=== PATIENT | female | born 1995 | race Hispanic/Latino ===

== ENCOUNTER 2022-01-30 07:16 | Day surgery (SDC) | payer MEDICAID ==
[2022-01-25 12:39] LABS: BASOPHILS % (AUTO) 0.6 % (0.0-5.0); EOSINOPHILS % (AUTO) 1.9 % (0.0-8.0); HEMATOCRIT 31.5 % (36-48); LYMPHOCYTES % (AUTO) 28.8 % (21.0-51.0); MEAN CORPUSCULAR HEMOGLOBIN 18.1 pg (27.0-33.0); MEAN CORPUSCULAR HGB CONC 28.3 g/dL (32.0-36.0); MEAN CORPUSCULAR VOLUME 63.9 fL (79-99); MONOCYTES % (AUTO) 9.4 % (3.0-13.0); NEUTROPHILS % (AUTO) 58.9 % (40.0-77.0); PLATELET COUNT (AUTO) 191 K/uL (130-400); RED BLOOD CELL COUNT(AUTO) 4.93 MIL/uL (4.00-5.50); RED CELL DISTRIBUTION WIDTH 20.4 % (11.0-15.5); WHITE BLOOD COUNT (AUTO) 6.9 K/uL (4.8-10.8)
[2022-01-25 12:50] LABS: APPEARANCE,URINE CLEAR (CLEAR); BILIRUBIN,URINE NEGATIVE (NEGATIVE); COLOR,URINE LIGHT-YELLOW (YELLOW); GLUCOSE, URINE (UA) NEGATIVE (NEGATIVE); KETONES,URINE NEGATIVE (NEGATIVE); LEUKOCYTE ESTERASE ,URINE 25 Leu/uL (NEGATIVE); NITRATE,URINE NEGATIVE (NEGATIVE); OCCULT BLOOD,URINE NEGATIVE (NEGATIVE); PROTEIN,URINE NEGATIVE (NEGATIVE); UROBILINOGEN,URINE 0.2 mg/dL (0.2-1.0)
[2022-01-25 12:50] LABS: INR 0.93 (0.85-1.15); PROTHROMBIN TIME 10.1 SEC (9.6-11.6)
[2022-01-25 12:52] LABS: PARTIAL THROMBOPLASTIN TIME 27.5 SEC (26.3-35.5)
[2022-01-25 12:58] LABS: MUCUS,URINE RARE LPF (None Seen); SQUAMOUS EPITHELIAL CELL,UR FEW /HPF (0-2)
[2022-01-26 14:37] VITALS: BP 152/88
[~2022-01-30] VITALS: Ht 152.4 cm; Wt 90.7 kg
[2022-01-30] VITALS (18 sets, daily range): BP systolic 120–149; BP diastolic 58–80
[~2022-01-30 07:16] MED LIST: 0.9%NACL 1000ML 1,000 ML IV SCH; CEFAZOLIN SODIUM 1 GM VIAL IVP SCH
[2022-01-30] MEDS ORDERED: LACTATED RINGERS 1000ML 1,000 ML IV ONE (07:45)
[2022-01-30] MEDS ORDERED: BUPIVACAINE/PF 0.25% 30ML VIAL IJ ONE (09:04)
[2022-01-30] MEDS ORDERED: CEFAZOLIN SODIUM 2 GM VIAL IVP ONE (10:41)
[2022-01-30] MEDS ORDERED: PROPOFOL 10 MG/ML 20ML VIAL IV ONE (10:42)
[2022-01-30] MEDS ORDERED: MIDAZOLAM HCL 1 MG/ML 2ML VIAL ONE (10:42)
[2022-01-30] MEDS ORDERED: KETOROLAC 30MG VIAL (30MG/ML) ONE ×2 (10:43→12:19)
[2022-01-30] MEDS ORDERED: FENTANYL CITRATE PF 50 MCG/1 ML 2ML VIAL ONE (10:45)
[2022-01-30] MEDS ORDERED: ONDANSETRON 4MG INJ ONE ×2 (11:15→12:18)
[2022-01-30] MEDS ORDERED: MEPERIDINE-PF 25 MG/ML SYG ONE (12:19)
== END 2022-01-30 13:50 | disposition home or self-care (01) ==
LOC: DAH 07:16
PROVIDERS: ATTEND Student in an Organized Health Care Education/Training Program
DX: N80.122 Deep endometriosis of left ovary (principal); Z20.822 Contact with and (suspected) exposure to COVID-19; I10 Essential (primary) hypertension; D64.9 Anemia, unspecified; Z79.01 Long term (current) use of anticoagulants; Z98.890 Other specified postprocedural states; Z98.891 History of uterine scar from previous surgery; Z83.3 Family history of diabetes mellitus; Z80.0 Family history of malignant neoplasm of digestive organs; Z80.9 Family history of malignant neoplasm, unspecified; Z87.891 Personal history of nicotine dependence
CPT/HCPCS: 85025; 85610; 85730; 81001; 36415 ×2; 10121; 84703; 87426; 88305; 88342; 88341; A4663; A4452; J7120; J3010; J0690 ×2; S0020; J2250; J3490; J2405 ×2; J1885 ×2; J2175; G0168; A4930; A4215; A4223; A4222; A4221; A4600; J2704

== ENCOUNTER 2023-03-19 09:35 | Day surgery (SDC) | payer MEDICAID ==
[2023-03-13 11:19] LABS: APPEARANCE,URINE CLEAR (CLEAR); BILIRUBIN,URINE NEGATIVE (NEGATIVE); COLOR,URINE LIGHT-YELLOW (YELLOW); GLUCOSE, URINE (UA) NEGATIVE (NEGATIVE); KETONES,URINE NEGATIVE (NEGATIVE); LEUKOCYTE ESTERASE ,URINE 250 Leu/uL (NEGATIVE); NITRATE,URINE NEGATIVE (NEGATIVE); OCCULT BLOOD,URINE SMALL (NEGATIVE); PH,URINE 5.5 (5.0-8.0); PROTEIN,URINE NEGATIVE (NEGATIVE); UROBILINOGEN,URINE 0.2 mg/dL (0.2-1.0)
[2023-03-13 11:21] LABS: ADD UA MICROSCOPIC YES
[2023-03-13 11:24] LABS: BACTERIA,URINE RARE /HPF (None Seen); MUCUS,URINE RARE LPF (None Seen); SQUAMOUS EPITHELIAL CELL,UR FEW /HPF (0-2)
[2023-03-13 11:25] LABS: HCG,QUALITATIVE URINE NEGATIVE (NEGATIVE)
[2023-03-13 11:44] VITALS: BP 148/89; PULSE 69; RESP 18
[2023-03-13 11:50] LABS: BASOPHILS % (AUTO) 0.8 % (0.0-5.0); EOSINOPHILS # (AUTO) 0.34 K/uL (0.00-0.70); EOSINOPHILS % (AUTO) 2.8 % (0.0-8.0); HEMATOCRIT 31.7 % (36-48); IMMATURE GRANULOCYTE ABSOLUTE 0.11 K/uL (0-1); LYMPHOCYTES # (AUTO) 1.6 K/uL (1.0-4.8); LYMPHOCYTES % (AUTO) 12.7 % (21.0-51.0); MEAN CORPUSCULAR HGB CONC 26.5 g/dL (32.0-36.0); MEAN CORPUSCULAR VOLUME 64.2 fL (79-99); MONOCYTES # (AUTO) 0.8 K/uL (0.1-1.0); MONOCYTES % (AUTO) 6.7 % (3.0-13.0); NEUTROPHILS # (AUTO) 9.4 K/uL (1.8-7.7); NEUTROPHILS % (AUTO) 76.1 % (40.0-77.0); PLATELET COUNT (AUTO) 327 K/uL (130-400); RED BLOOD CELL COUNT(AUTO) 4.94 MIL/uL (4.00-5.50); RED CELL DISTRIBUTION WIDTH 19.6 % (11.0-15.5); WHITE BLOOD COUNT (AUTO) 12.4 K/uL (4.8-10.8)
[2023-03-19] VITALS (17 sets, daily range): BP systolic 117–131; BP diastolic 51–77; PULSE 64–96; RESP 14–20
[~2023-03-19] VITALS: Ht 152.4 cm; Wt 97.6 kg
[~2023-03-19 09:35] MED LIST changes: -0.9%NACL 1000ML 1,000 ML IV SCH; -CEFAZOLIN SODIUM 1 GM VIAL IVP SCH; +TRAM50TA4 PO
[2023-03-19] MEDS ORDERED: LACTATED RINGERS 1000ML 1,000 ML IV ONE (10:06)
[2023-03-19] MEDS ORDERED: CEFAZOLIN SODIUM 2 GM VIAL ONE (10:06)
[2023-03-19] MEDS ORDERED: FAMOTIDINE 20MG VIAL IV ONE (12:20)
[2023-03-19] MEDS ORDERED: MIDAZOLAM HCL 1 MG/ML 2ML VIAL ONE (12:23)
[2023-03-19] MEDS ORDERED: LIDOCAINE PF 100MG/5ML (2%) SYRINGE 5ML ONE (12:28)
[2023-03-19] MEDS ORDERED: FENTANYL CITRATE PF 50 MCG/1 ML 2ML VIAL ONE ×3 (12:29→14:08)
[2023-03-19] MEDS ORDERED: PROPOFOL 10 MG/ML 20ML VIAL IV ONE (12:29)
[2023-03-19] MEDS ORDERED: ONDANSETRON 4MG INJ ONE ×2 (12:46→13:56)
[2023-03-19] MEDS ORDERED: LIDOCAINE 1%-EPI 1:100,000 20 ML VIAL IJ ONE (12:51)
[2023-03-19] MEDS ORDERED: EPHEDRINE SULFATE 50 MG/ML AMPULE ONE (12:58)
[2023-03-19] MEDS ORDERED: MEPERIDINE-PF 25 MG/ML SYG ONE ×2 (13:41→13:57)
[2023-03-19] MEDS ORDERED: KETOROLAC 30MG VIAL (30MG/ML) ONE (14:38)
== END 2023-03-19 15:35 | disposition home or self-care (01) ==
LOC: DAH 09:35
PROVIDERS: ATTEND Student in an Organized Health Care Education/Training Program
DX: D48.5 Neoplasm of uncertain behavior of skin (principal); R22.2 Localized swelling, mass and lump, trunk; N80.9 Endometriosis, unspecified; I10 Essential (primary) hypertension; Z79.899 Other long term (current) drug therapy; Z79.01 Long term (current) use of anticoagulants; Z98.891 History of uterine scar from previous surgery; Z98.890 Other specified postprocedural states; Z83.3 Family history of diabetes mellitus; Z80.8 Family history of malignant neoplasm of other organs or systems; Z87.891 Personal history of nicotine dependence
CPT/HCPCS: 85025; 87077; 87088; 87186; 81001; 81025 ×2; 36415; 11406; 88305; A6260; A4663; J7120 ×2; A4452; J3010 ×3; J3490 ×4; J2250; J2405 ×2; J1885; J2175 ×2; J0690; A4930 ×2; A4215; A4223; A4222; A4221; A4600; S0028; J2001; J2704; G0168

== ENCOUNTER 2024-05-17 18:56 | Emergency (ER) | payer MEDICAID ==
[~2024-05-17] VITALS: Ht 152.4 cm; Wt 95.3 kg
--- NOTE | 2024-05-17 18:58 | NUR ---
UA CUP PROVIDED
--- NOTE | 2024-05-17 19:20 | NUR ---
PT CARE ASSUMED AT THIS TIME
[2024-05-17 19:31] LABS: APPEARANCE,URINE CLEAR (CLEAR); BILIRUBIN,URINE NEGATIVE (NEGATIVE); COLOR,URINE YELLOW (YELLOW); GLUCOSE, URINE (UA) NEGATIVE (NEGATIVE); KETONES,URINE NEGATIVE (NEGATIVE); LEUKOCYTE ESTERASE ,URINE NEGATIVE Leu/uL (NEGATIVE); NITRATE,URINE NEGATIVE (NEGATIVE); OCCULT BLOOD,URINE NEGATIVE (NEGATIVE); PH,URINE 6.5 (5.0-8.0); PROTEIN,URINE 10 mg/dL (NEGATIVE); UROBILINOGEN,URINE 0.2 mg/dL (0.2-1.0)
[2024-05-17 19:33] LABS: ADD UA MICROSCOPIC YES
[2024-05-17 19:35] LABS: BACTERIA,URINE RARE /HPF (None Seen); MUCUS,URINE RARE LPF (None Seen); SQUAMOUS EPITHELIAL CELL,UR FEW /HPF (0-2); WBC,URINE 0-1 /HPF (0-1)
[2024-05-17 19:41] LABS: BASOPHILS # (AUTO) 0.05 K/uL (0.00-0.20); BASOPHILS % (AUTO) 0.6 % (0.0-5.0); EOSINOPHILS % (AUTO) 1.2 % (0.0-8.0); HEMATOCRIT 33.4 % (36-48); IMMATURE GRANULOCYTE ABSOLUTE 0.03 K/uL (0-1); LYMPHOCYTES # (AUTO) 1.5 K/uL (1.0-4.8); LYMPHOCYTES % (AUTO) 17.8 % (21.0-51.0); MEAN CORPUSCULAR HEMOGLOBIN 16.9 pg (27.0-33.0); MEAN CORPUSCULAR HGB CONC 27.2 g/dL (32.0-36.0); MEAN CORPUSCULAR VOLUME 62.2 fL (79-99); MONOCYTES # (AUTO) 0.5 K/uL (0.1-1.0); MONOCYTES % (AUTO) 6.4 % (3.0-13.0); NEUTROPHILS # (AUTO) 6.2 K/uL (1.8-7.7); NEUTROPHILS % (AUTO) 73.6 % (40.0-77.0); PLATELET COUNT (AUTO) 283 K/uL (130-400); RED BLOOD CELL COUNT(AUTO) 5.37 MIL/uL (4.00-5.50); RED CELL DISTRIBUTION WIDTH 21.9 % (11.0-15.5); WHITE BLOOD COUNT (AUTO) 8.4 K/uL (4.8-10.8)
[2024-05-17 19:48] LABS: CREATININE 0.6 mg/dL (0.5-1.0); POTASSIUM 3.4 mmol/L (3.5-5.1)
--- NOTE | 2024-05-17 20:20 | NUR ---
2 LARGE CUPS OF WATER GIVEN, PATIENT INSTRUCTED TO DRINK MUCH SHE CAN AND DO NOT USE THE RESTROOM UNTIL AFTER U/S IS OBTAINED.
--- NOTE | 2024-05-17 20:59 | NUR ---
ULTRA SOUND TECH AT BEDSIDE AT THIS TIME. PT DOES NOT HAVE FULL BLADDER AT THIS TIME. CARBON GRINDER WILL BE BACK WITHIN AN HOUR. PT ADVISED AT THIS TIME TO CONTIUE DRINKING AND NOTIFY ED RN WHEN THE NEED TO PEE BEGINS.
--- NOTE | 2024-05-17 21:32 | NUR ---
ULTRASOUND PAGED AT THIS TIME AND NOTIFIED THAT PT REPORTED FULL BLADDER AT THIS TIME.
--- NOTE | 2024-05-17 22:17 | ERN ---
General Chief Complaint: OB<20 weeks gest. Stated Complaint: VAGINAL BLEEDING Time Seen by MD: 19:03 Time Seen by Midlevel: 19:03 Source: patient History of Present Illness Initial Comments Patient is a 20-year-old female presenting to the emergency department with suprapubic abdominal cramping that is rated four on a 0-10 scale. She reports light vaginal bleeding with what appears to be blood clots. Per last menstrual. The patient reports being approximately 5-6 weeks . She reports being a A0. She was not seen an OBGYN or primary care doctor for this . She reports taking her vitamins denies taking any other medications on a daily basis. Allergies: Coded Allergies: No Known Drug Allergies (Unverified Allergy, Unknown, 01/26/22) Home Meds Reported Medications Tramadol Hcl (Tramadol HCl) 50 Mg Tablet, 1 TAB PO DAILY PRN for PAIN 03/13/23 Past Medical History Past Medical History: No Pertinent History Past Surgical History: Female( History) LMP: Apr 05, 2024 : 2 Para: 1 ROS Dictation CONSTITUTIONAL: Negative except for HPI HEAD/FACE: Negative except for HPI EENT: Negative except for HPI RESPIRATORY: Negative except for HPI GASTROINTESTINAL/ABDOMINAL: Negative except for HPI GENITOURINARY: Negative except for HPI MUSCULOSKELETAL: Negative except for HPI INTEGUMENTARY: Negative except for HPI NEUROLOGICAL/PSYCH: Negative except for HPI HEMATOLOGIC/LYMPHATIC: Negative except for HPI All Systems Negative, Except as noted above. 13 point review of systems assessed and all negative except for above. Physical Exam Physical Exam Dictation Vital Signs reviewed General Appearance: Alert, oriented x 3, no acute distress, well developed, nourished. Head and Face: non-traumatic. Eyes: PERRL, pink conjunctivas, eyelid no trauma, anterior chamber with arcus senilis. Ears: Pinnas intact and no signs of trauma or erythema ear canals clear and no discharge TM no erythema Nose: No discharge, no bleeding. Oropharynx: Mouth normal, tongue pink, pharynx clear,no erythema, tonsils no exudates, no abscesses noted, mucous membrane moist Neck: Supple, non-tender, no thyromegaly, no masses, no JVD, no bruits Breast:Deferred Chest:No tenderness, no crepitus, no paradoxical movement, no retractions Lungs:Clear, well-ventilated, symmetric, no rales, no wheezing, no rhonchi, no stridor, good breath sounds bilaterally Heart: Regular rate, regular rhythm, no murmur, no gallops Vascular: no peripheral edema, Abdomen: Soft, positive bowel sounds, nondistended, no guarding, nontender, no rebound, no masses no hepatomegaly, no splenomegaly, no Reyes's sign, no hernias. Rectal: Deferred Genital: Deferred Neurological: Normal speech, motor function intact, sensory function intact Musculoskeletal: Neck nontender, full range of motion, back nontender, full range of motion, Extremities: nontender, full range of motion Skin: Color pink, dry, no turgor, no rash, no lacerations, no abrasions, no contusions. Lymphatic: Deferred Results Laboratory and Microbiology Lab and Micro Result Laboratory Tests Test 05/17/24 19:25 05/17/24 19:34 Urine Color YELLOW (YELLOW) Urine Appearance CLEAR (CLEAR) Urine pH 6.5 (5.0-8.0) Urine Specific [place] 1.027 (1.001-1.031) Urine Protein 10 mg/dL (NEGATIVE) H Urine Glucose (UA) NEGATIVE mg/dL (NEGATIVE) Urine Ketones NEGATIVE mg/dL (NEGATIVE) Urine Occult Blood NEGATIVE (NEGATIVE) Urine Nitrate NEGATIVE (NEGATIVE) Urine Bilirubin NEGATIVE mg/dL (NEGATIVE) Urine Urobilinogen 0.2 mg/dL (0.2-1.0) Urine Leukocyte Esterase NEGATIVE Swathi/uL Urine RBC 11-25 /HPF (0-1) H Urine WBC 0-1 /HPF (0-1) Urine Squamous Epithelial Cells FEW /HPF (0-2) Urine Bacteria RARE /HPF (None Seen) White Blood Count 8.4 K/uL (4.8-10.8) Red Blood Count 5.37 MIL/uL (4.00-5.50) Hemoglobin 9.1 g/dL (12.0-16.0) L Hematocrit 33.4 % (36-48) L Mean Corpuscular Volume 62.2 fL (79-99) L Mean Corpuscular Hemoglobin 16.9 pg (27.0-33.0) L Mean Corpuscular Hemoglobin Concent 27.2 g/dL (32.0-36.0) L Red Cell Distribution Width 21.9 % (11.0-15.5) H Platelet Count 283 K/uL (130-400) Mean Platelet Volume fL (7.5-10.5) Immature Granulocyte % (Auto) 0.4 % (0-1) Neutrophils (%) (Auto) 73.6 % (40.0-77.0) Lymphocytes (%) (Auto) 17.8 % (21.0-51.0) L Monocytes (%) (Auto) 6.4 % (3.0-13.0) Eosinophils (%) (Auto) 1.2 % (0.0-8.0) Basophils (%) (Auto) 0.6 % (0.0-5.0) Neutrophils # (Auto) 6.2 K/uL (1.8-7.7) Lymphocytes # (Auto) 1.5 K/uL (1.0-4.8) Monocytes # (Auto) 0.5 K/uL (0.1-1.0) Eosinophils # (Auto) 0.10 K/uL (0.00-0.70) Basophils # (Auto) 0.05 K/uL (0.00-0.20) Absolute Immature Granulocyte (auto 0.03 K/uL (0-1) Nucleated Red Blood Cells 0.0 % (0.0-0.19) Red Blood Cell Morphology See comments Sodium Level 139 mmol/L (136-145) Potassium Level 3.4 mmol/L (3.5-5.1) L Chloride Level 102 mmol/L (101-111) Carbon Dioxide Level 28 mmol/L (21-32) Blood Urea Nitrogen 10 mg/dL (7-18) Creatinine 0.6 mg/dL (0.5-1.0) Glomerular Filtration Rate Calc 125 mL/min (>90) Random Glucose 92 mg/dL (70-105) Total Calcium 8.9 mg/dL (8.5-10.1) Human Chorionic Gonadotropin, Quant 7680 mIU/mL (0-5) H Labs Reviewed?: Yes MDM MDM: Patient is a 28-year-old female presenting to the emergency department with suprapubic abdominal cramping that is rated four on a 0-10 scale. She reports l ight vaginal bleeding with what appears to be blood clots. Per last menstrual. The patient reports being approximately 5-6 weeks . She reports being a A0. She was not seen an OBGYN or primary care doctor for this . She reports taking her vitamins denies taking any other medications on a daily basis. On physical examination the patient is in no acute distress. Initial vital signs are stable. CBC shows a normal white blood cell count of 8.4. Hemoglobin is 9.1 however the patient has a history of chronic anemia with her last hemoglobin back in March of 2023 being 8.4. Hemoglobin obtained today is stable. Her chemistries are unremarkable. Her hCG quant is 7680. Urinalysis does not show any evidence of infection. Pelvic ultrasound reveals an intrauterine gestation measuring approximately five weeks and one days. No subchorionic bleed was noted. While in the emergency department the patient has had no episodes of vaginal bleeding. The patient will be discharged home and was advised to follow up with OBGYN outpatient. Return precautions discussed Differential diagnosis: Threatened , miscarriage, urinary tract infection There are no social concerns with this patient. Prescription drug management Prescriptions will include: None Medical management and examination interpretation discussions were had by me with other qualified healthcare professionals as indicated for the patient's care. ED Course Orders Procedure Category Date Status Time Cbc With Differential LAB 05/17/24 Complete 18:57 Basic Metabolic Panel LAB 05/17/24 Complete 18:57 Urinalysis Profile LAB 05/17/24 Complete 18:57 Hcg,Quantitative LAB 05/17/24 Complete 18:57 Us Ob <14 Weeks US 05/17/24 Taken 20:15 Vital Signs Date Time Temp Pulse Resp B/P (MAP) Pulse Ox O2 Delivery O2 Flow Rate FiO2 05/17/24 22:27 98.1 71 18 131/70 96 Room Air* 0 21 05/17/24 20:17 98.2 78 20 134/77 96 Room Air* 0 21 05/17/24 19:40 98.1 72 18 131/71 96 Room Air* 0 21 05/17/24 18:57 98.2 97 20 146/87 100 Room Air DX & DISP Disposition: Discharge Departure Impression: Primary Impression: First trimester Condition: Stable Additional Instructions: Your blood work today is stable. Your hCG quant is 7680. Your urinalysis does not show any evidence of infection. Your pelvic ultrasound reveals an intrauterine gestational sac measuring approximately five weeks and one day. Please follow up with your OBGYN for further evaluation. Return to the ER for any new or worsening symptoms Referrals: NONE (PCP) SEAN SALAZAR MD Time of Disposition: 22:17 I have reviewed the case, and I agree with, Diagnosis and Plan I performed the substantive portion of the visit. I have reviewed and personally made and approve the management plan that is documented in the note by myself or the YOVANNY. I acknowledge for responsibility for the patient's management plan. KELY GUTIERREZ May 17, 2024 22:17
[2024-05-17 22:27] VITALS: BP 131/70; PULSE 71; RESP 18; TEMP 98; O2SAT 96
--- NOTE | 2024-05-18 08:55 | HMCIMG ---
ULTRASOUND OF THE PELVIS INDICATION: Vaginal bleeding COMPARISONS: None TECHNIQUE: Transabdominal real-time sonographic images were acquired earlier, and subsequently made available for review. FINDINGS: Examination is limited by extensive overlying bowel gas as well as patient body habitus and patient's inability to hold full bladder as per the web page developer notes. The uterus measures 11.9 x 6.0 x 6.6 cm. The uterus is normal in echotexture and contour. Single intrauterine gestation measuring 0.4 cm corresponds adjustment sonographic gestational age of 5 weeks 1 days. Yolk sac and pole were not well-demonstrated. Ovaries were not well-demonstrated. No free pelvic fluid demonstrated. IMPRESSION: Limitations as reported. Findings suggesting early intrauterine gestation for which continued surveillance of beta-hCG levels and short-term follow-up sonographic imaging is recommended.
== END 2024-05-17 22:28 | disposition home or self-care (01) ==
LOC: EDH 18:56
DX: O26.891 Other specified pregnancy related conditions, first trimester (principal); R10.2 Pelvic and perineal pain; O20.9 Hemorrhage in early pregnancy, unspecified; Z3A.01 Less than 8 weeks gestation of pregnancy
CPT/HCPCS: 36415; 76801; 80048; 81001; 84702; 85025; 99284

== ENCOUNTER 2024-05-20 11:07 | Emergency (ER) | payer MEDICAID ==
[~2024-05-20] VITALS: Ht 160 cm; Wt 72.6 kg
--- NOTE | 2024-05-20 11:38 | ERN ---
General Stated Complaint: 5WKS CURRENTLY BLEEDING Source: patient History of Present Illness Initial Comments Patient is a 29-year-old female 2 para 1 at 5 weeks IUP who presented to the emergency room with a one-week history of vaginal bleeding. Apparently patient was here last week for spotting, she returned today because she states that she is now passing blood clots. States the clots are the size of an orange. Patient states she has changed about 3 times today. There is associated pelvic cramps. Rates the pain as a 7/10, intermittent in frequency. Denies any fever any chills, nausea or vomiting. Allergies: Coded Allergies: No Known Drug Allergies (Unverified Allergy, Unknown, 01/26/22) Home Meds Reported Medications Tramadol Hcl (Tramadol HCl) 50 Mg Tablet, 1 TAB PO DAILY PRN for PAIN 03/13/23 Past Medical History Past Medical History: No Pertinent History Past Surgical History: Female( History) : 2 Para: 1 ROS Dictation Constitutional: No appetite loss, No fevers, chills , No night sweats, No weakness, fatigue Eye: No vision change, No redness, pain or discharge ENT: No hearing loss, ear pain or discharge, No nose bleeds, No sore throat, Neck: No swelling. pain or stiffness Respiratory: No cough, shortness of breath, wheezing Cardiovascular: No chest pain,, palpitations, dyspnea, No edema Gastrointestinal: No abdominal pain, No nausea, vomiting, No diarrhea, constipation Genitourinary: No painful urination, No blood in urine, No urinary incontinence, Vaginal bleeding, pelvic cramps Musculoskeletal: No joint pain, muscle pain, swelling or stiffness Neurological: No numbness, tingling, No weakness, tremors or seizures Psychiatric: : No depression, No anxiety, No sleep disturbance, No Memory changes Lymphatic: No easy bruising, No bleeding tendencies , No swollen lymph nodes A 13-point Review of Systems was assessed, all of which are negative except for HPI or as indicated above. Physical Exam Physical Exam Dictation General: Alert & Oriented, No acute distress. EENT: No conjunctival redness or discharge noted Tympanic membranes are clear, Normal hearing, Oral mucosa is moist, Neck: Non-tender, No jugular vein distention, No lymphadenopathy, No thyromegaly, Supple. Respiratory: Lungs are clear to auscultation, Respirations are non-labored, Breath sounds are equal, No chest wall tenderness, _. Cardiovascular: Normal rate, Normal rhythm, No murmur, Good pulses equal in all extremities, Normal peripheral perfusion, No edema. Gastrointestinal: Soft, Non-tender, Non-distended, Normal bowel sounds, No organomegaly, _. Musculoskeletal: Normal range of motion, Normal strength, No tenderness, No swelling, No deformity, Normal gait. Integumentary: Warm, Dry, [place], Intact, No pallor, No rash. Neurologic: Alert, Oriented x4, Normal sensory, No focal defects Psychiatric: Cooperative, Appropriate mood & affect, Normal judgement, Non- suicidal. Results Laboratory and Microbiology Lab and Micro Result Laboratory Tests Test 05/20/24 12:28 05/20/24 12:33 White Blood Count 7.6 K/uL (4.8-10.8) Red Blood Count 5.07 MIL/uL (4.00-5.50) Hemoglobin 8.5 g/dL (12.0-16.0) L Hematocrit 31.1 % (36-48) L Mean Corpuscular Volume 61.3 fL (79-99) L Mean Corpuscular Hemoglobin 16.8 pg (27.0-33.0) L Mean Corpuscular Hemoglobin Concent 27.3 g/dL (32.0-36.0) L Red Cell Distribution Width 22.5 % (11.0-15.5) H Platelet Count 274 K/uL (130-400) Mean Platelet Volume fL (7.5-10.5) Immature Granulocyte % (Auto) 0.3 % (0-1) Neutrophils (%) (Auto) 74.4 % (40.0-77.0) Lymphocytes (%) (Auto) 16.2 % (21.0-51.0) L Monocytes (%) (Auto) 7.5 % (3.0-13.0) Eosinophils (%) (Auto) 0.9 % (0.0-8.0) Basophils (%) (Auto) 0.7 % (0.0-5.0) Neutrophils # (Auto) 5.7 K/uL (1.8-7.7) Lymphocytes # (Auto) 1.2 K/uL (1.0-4.8) Monocytes # (Auto) 0.6 K/uL (0.1-1.0) Eosinophils # (Auto) 0.07 K/uL (0.00-0.70) Basophils # (Auto) 0.05 K/uL (0.00-0.20) Absolute Immature Granulocyte (auto 0.02 K/uL (0-1) Nucleated Red Blood Cells 0.0 % (0.0-0.19) Human Chorionic Gonadotropin, Quant 93583 mIU/mL (0-5) H MDM Potential differential diagnoses include: * Bleeding in early Assessment: I will order a CBC to rule out any anemia and pelvic ultrasound to rule out any retained products of conception I will re-evaluate the patient after treatment and diagnostic exams have returned to determine whether they require further testing, can be safely discharged home, or need admission for further treatment and evaluation. Patient's [place] was 17557, an increase from results 2 days ago which was 7680. Shows intrauterine sac like structure. Estimated discharge gestational age 5 weeks 5 days. No pole seen at this time Given the social determinants of health affecting care, including literacy, access to medical care, prescription drug management, and [id number] drugs, I will ensure that treatment plans are tailored accordingly. Revaluation : Patient is alert and oriented. States she feels a lot better . We will discharge the patient at this time with instructions to follow up with her OBGYN as soon as possible. Disposition: Will discharge patient at this time with instructions to follow up with PCP for further evaluation and treatment. Attestation: Patient's case was discussed with the ER MD. Reviewed the documentation, medical decision making and treatment plan. Agrees with the findings and plan of care. ED Course Orders Procedure Category Date Status Time Cbc With Differential LAB 05/20/24 Complete 11:22 Hcg,Quantitative LAB 05/20/24 Complete 11:22 Us Ob Transvaginal US 05/20/24 Resulted 11:22 Vital Signs Date Time Temp Pulse Resp B/P (MAP) Pulse Ox O2 Delivery O2 Flow Rate FiO2 05/20/24 14:38 99.0 72 20 143/81 100 Room Air* 0 21 05/20/24 11:32 99.0 72 20 155/83 99 Room Air 0 DX & DISP Disposition: Discharge Departure Impression: Primary Impression: Bleeding in early Condition: Stable Additional Instructions: Discharge Instructions: Explained to the patient that at this time an intrauterine sac like structure was seen however no pole was seen at this time and her is HCG increased from what it was 2 days ago . It is imperative that she follows with up with her Ob so she can be monitored patient verbalized understanding of instructions. *Follow up with your OBGYN in 2 - 3 days after dischargee, for further evaluation and treatment *Continue all medications as prescribed. Do not discontinue or change dosages without consulting your PCP. *Gradually resume normal activities as tolerated. *Continue a balanced diet . Reduce salt intake to help manage BP. *Seek immediate medical attention if you experience chest pain, SOB or severe headache. *Smoking cessation is strongly advised. Resources for quitting smoking are available upon request. Referrals: SELF,REFERRAL (PCP) I performed a substantive portion of the visit. I have reviewed and personally made and approve the management plan that is documented in the notes by myself with YOVANNY/resident. I acknowledged full responsibility for the patient's management plan. KIERAN THOMASON MD May 20, 2024 11:38 PRIYA MONK DO May 21, 2024 09:01
--- NOTE | 2024-05-20 11:55 | HMCIMG ---
US OB TRANSVAGINAL HISTORY: Vaginal bleeding COMPARISON: None TECHNIQUE: Obstetrical ultrasound study was performed. FINDINGS: The uterus measures 8.6 x 6.3 x 6 centimeter. Right ovary measures 3.5 x 3 x 3.4 centimeter. Left ovary is not seen. There is intrauterine saclike structure. In a patient with positive test, differential diagnosis would include early versus ectopic versus missed . Estimated gestational age by sac size is 5 weeks and 5 days. Beta-hCG correlation is recommended. No pole is seen at this time. No fluid is seen in the cul-de-sac. IMPRESSION: 1. There is intrauterine saclike structure. In a patient with positive test, differential diagnosis would include early versus ectopic versus missed . Estimated gestational age by sac size is 5 weeks and 5 days. Beta-hCG correlation is recommended. No pole is seen at this time.
[2024-05-20 13:01] LABS: BASOPHILS # (AUTO) 0.05 K/uL (0.00-0.20); BASOPHILS % (AUTO) 0.7 % (0.0-5.0); EOSINOPHILS # (AUTO) 0.07 K/uL (0.00-0.70); EOSINOPHILS % (AUTO) 0.9 % (0.0-8.0); HEMATOCRIT 31.1 % (36-48); IMMATURE GRANULOCYTE ABSOLUTE 0.02 K/uL (0-1); LYMPHOCYTES # (AUTO) 1.2 K/uL (1.0-4.8); LYMPHOCYTES % (AUTO) 16.2 % (21.0-51.0); MEAN CORPUSCULAR HEMOGLOBIN 16.8 pg (27.0-33.0); MEAN CORPUSCULAR HGB CONC 27.3 g/dL (32.0-36.0); MEAN CORPUSCULAR VOLUME 61.3 fL (79-99); MONOCYTES # (AUTO) 0.6 K/uL (0.1-1.0); MONOCYTES % (AUTO) 7.5 % (3.0-13.0); NEUTROPHILS # (AUTO) 5.7 K/uL (1.8-7.7); NEUTROPHILS % (AUTO) 74.4 % (40.0-77.0); PLATELET COUNT (AUTO) 274 K/uL (130-400); RED BLOOD CELL COUNT(AUTO) 5.07 MIL/uL (4.00-5.50); RED CELL DISTRIBUTION WIDTH 22.5 % (11.0-15.5); WHITE BLOOD COUNT (AUTO) 7.6 K/uL (4.8-10.8)
[2024-05-20 14:38] VITALS: BP 143/81; PULSE 72; RESP 20; TEMP 98.9; O2SAT 100
== END 2024-05-20 14:43 | disposition home or self-care (01) ==
LOC: EDH 11:07
DX: O20.9 Hemorrhage in early pregnancy, unspecified (principal); O26.891 Other specified pregnancy related conditions, first trimester; R10.2 Pelvic and perineal pain; Z3A.01 Less than 8 weeks gestation of pregnancy
CPT/HCPCS: 36415; 76817; 84702; 85025; 99284

== ENCOUNTER 2024-09-08 15:15 | Emergency (ER) | payer MEDICAID ==
--- NOTE | 2024-09-08 15:29 | ERN ---
ED Note History of Present Illness Stated Complaint: MECHANICAL FALL Time Seen by MD: 15:17 Dictation: IS A 29-YEAR-OLD FEMALE WHO STATES SHE IS 21 WEEKS , STATES SHE FELL APPROXIMATE 30 MINUTES PRIOR TO ARRIVAL. G-TUBE P1, SHE IS COMPLAINING OF MILD ABDOMINAL PAIN. SHE DENIES ANY VAGINAL BLEEDING OR CONTRACTIONS. STATES HER DOCTOR IS DR. MCQUEEN OUT OF [facility]. I ADVISED HER THAT I WOULD BE CHECKING STATUS AND WE WILL BE TRANSFER HER TO A HIGHER LEVEL OF CARE WITH THE [facility], SHE ASKED ME IF WE HAD IT HERE AND I SAID NO. I SAID WE WOULD BE TRANSFER HER TO [facility]. SHE STATES SHE DID NOT WANT TO WAIT FOR A TRANSFER AND SAID HER SAID HE WOULD DRIVE HER TO [facility]. I ADVISED HER TO LET ME CHECK STATUS AND HAVE TRANSFERRED BY EMS HOWEVER SHE REFUSED. SHE LEFT THE TRIAGE WITHOUT SIGNING FOR AMA FORM Allergies: Coded Allergies: No Known Drug Allergies (Unverified Allergy, Unknown, 01/26/22) Home Meds Reported Medications Tramadol Hcl (Tramadol HCl) 50 Mg Tablet, 1 TAB PO DAILY PRN for PAIN 03/13/23 Past Medical History Past Medical History: No Pertinent History Surgical History: : 2 Para: 1 RN Note Reviewed/Agreed w/PFSH: Yes Review of System Dictation CONSTITUTIONAL: NEGATIVE EXCEPT FOR HPI HEAD/FACE: NEGATIVE EXCEPT FOR HPI EENT: NEGATIVE EXCEPT FOR HPI RESPIRATORY: NEGATIVE EXCEPT FOR HPI GASTROINTESTINAL/ABDOMINAL: NEGATIVE EXCEPT FOR HPI PELVIC PAIN GENITOURINARY: NEGATIVE EXCEPT FOR HPI MUSCULOSKELETAL: NEGATIVE EXCEPT FOR HPI INTEGUMENTARY: NEGATIVE EXCEPT FOR HPI NEUROLOGICAL/PSYCH: NEGATIVE EXCEPT FOR HPI HEMATOLOGIC/LYMPHATIC: NEGATIVE EXCEPT FOR HPI ALL SYSTEMS NEGATIVE, EXCEPT NOTED ABOVE. 13 POINT REVIEW OF SYSTEMS ASSESSED AND ALL NEGATIVE EXCEPT FOR ABOVE. Physical Exam Dictation VITAL SIGNS REVIEWED GENERAL APPEARANCE: ALERT, ORIENTED X 3, MILD ACUTE DISTRESS, WELL DEVELOPED, NOURISHED. HEAD AND FACE: NON-TRAUMATIC. EYES: PERRL, PINK CONJUNCTIVAS, EYELID NO TRAUMA, ANTERIOR CHAMBER WITH ARCUS SENILIS. EARS: PINNAS INTACT AND NO SIGNS OF TRAUMA OR ERYTHEMA EAR CANALS CLEAR AND NO DISCHARGE TM NO ERYTHEMA NOSE: NO DISCHARGE, NO BLEEDING. OROPHARYNX: MOUTH NORMAL, TONGUE PINK, PHARYNX CLEAR,NO ERYTHEMA, TONSILS NO EXUDATES, NO ABSCESSES NOTED, MUCOUS ME MBRANE MOIST NECK: SUPPLE, NON-TENDER, NO THYROMEGALY, NO MASSES, NO JVD, NO BRUITS BREAST:DEFERRED CHEST:NO TENDERNESS, NO CREPITUS, NO PARADOXICAL MOVEMENT, NO RETRACTIONS LUNGS:CLEAR, WELL-VENTILATED, SYMMETRIC, NO RALES, NO WHEEZING, NO RHONCHI, NO STRIDOR, GOOD BREATH SOUNDS BILATERALLY HEART: REGULAR RATE, REGULAR RHYTHM, NO MURMUR, NO GALLOPS VASCULAR: NO PERIPHERAL EDEMA, ABDOMEN: SOFT, POSITIVE BOWEL SOUNDS, NONDISTENDED, NO GUARDING, NONTENDER, NO REBOUND, NO MASSES NO HEPATOMEGALY, NO SPLENOMEGALY, NO RANGEL'S SIGN, NO HERNIAS. RECTAL: DEFERRED GENITAL: DEFERRED PATIENT LEFT TRIAGE AGAINST MEDICAL ADVICE BEFORE HEART TONES WAS ESTABLISHED. LEFT LOWER POV NEUROLOGICAL: NORMAL SPEECH, MOTOR FUNCTION INTACT, SENSORY FUNCTION INTACT MUSCULOSKELETAL: NECK NONTENDER, FULL RANGE OF MOTION, BACK NONTENDER, FULL RANGE OF MOTION, EXTREMITIES: NONTENDER, FULL RANGE OF MOTION SKIN: COLOR PINK, DRY, NO TURGOR, NO RASH, NO LACERATIONS, NO ABRASIONS, NO CONTUSIONS. LYMPHATIC: DEFERRED Results (Laboratory/Radiology) Labs Reviewed?: Yes Medical Decision Making MDM MEDICAL DECISION-MAKING BASED ON CHECKING HEART TONES AND HAVING PATIENT TRANSFERRED TO A HIGHER LEVEL OF CARE DUE TO HIGH-RISK FOR [facility]. PATIENT REFUSED TRANSFER AND LEFT THE TRIAGE ROOM AGAINST MEDICAL ADVICE STATES IT HER WE WILL TAKE HER DIRECTLY TO [facility]. DX & DISP Disposition: AMA Departure Impression: Primary Impression: Fall Additional Impression: Abdominal pain during in second trimester Condition: Stable Referrals: SELF,REFERRAL (PCP) Time of Disposition: 15:28 I have reviewed the case, and I agree with, Diagnosis and Plan YOVANY CONRAD NP Sep 08, 2024 15:29
== END 2024-09-08 15:29 | disposition left against medical advice (07) ==
LOC: EDH 15:15
DX: O26.892 Other specified pregnancy related conditions, second trimester (principal); R10.9 Unspecified abdominal pain; W18.39XA Other fall on same level, initial encounter; Y93.89 Activity, other specified; Y92.89 Other specified places as the place of occurrence of the external cause; Y99.8 Other external cause status
CPT/HCPCS: 99281

== ENCOUNTER 2024-12-04 01:28 | Emergency (ER) | payer MEDICAID ==
[~2024-12-04] VITALS: Ht 152.4 cm; Wt 105.7 kg
--- NOTE | 2024-12-04 01:54 | ERN ---
ED Note History of Present Illness Stated Complaint: C/O COUGH WITH SORE THROAT X 2 DAYS Chief Complaint: Sore Throat Time Seen by MD: 01:32 Dictation: This is a 29-year-old female who is 4 weeks came in with sore throat and mild cough for the past 2 days. She denied any fever chills or rigors. Many of the family members are also sick with a URI symptoms. No travel no new pets at home. No sputum or hemoptysis. She does report some itching in her ears but no earache Temperature 98 pulse 68 respirations 20 blood pressure 146/91 with a pulse oximetry of 98% on room air Allergies: Coded Allergies: No Known Drug Allergies (Unverified Allergy, Unknown, 01/26/22) Home Meds Active Scripts Amoxicillin (Amoxicillin) 500 Mg Tablet, 1 TAB PO TID for 7 Days, #21 TAB 0 Refills Prov:IMTIAZ GROVE MD 12/04/24 Reported Medications Tramadol Hcl (Tramadol HCl) 50 Mg Tablet, 1 TAB PO DAILY PRN for PAIN 03/13/23 Past Medical History Past Medical History: Hypertension Surgical History: Family History: Negative Social History: Negative : 2 Para: 1 RN Note Reviewed/Agreed w/PFSH: Yes Review of System Dictation Constitutional: Negative for fever,chills, and weight loss Eyes: Negative for injury, pain,redness, and discharge ENT: Negative for injury,pain or swelling positive for sore throat Cardiovascular: Negative for chest pain, palpitations, and edema Respiratory: Negative for shortness of breath, cough, and wheezing, Abdomen/GI: Negative for abdominal pain, nausea, vomiting, diarrhea, and constipation Back: Negative for injury and pain : Negative for injury, bleeding and discharge MS/Extremity: Negative for injury and deformity Skin: Negative for rash, and discoloration Neuro: Negative for headache, weakness, numbness, tingling, and seizure Psych: Negative for suicide ideation, homicidal ideation, and hallucinations Initial Vital Sign VS Vital Signs Date Time Temp Pulse Resp B/P (MAP) Pulse Ox O2 Delivery O2 Flow Rate FiO2 12/04/24 01:29 98.1 69 20 146/91 98 Room Air 12/04/24 01:46 0 21 Physical Exam Dictation General: awake, alert, NAD extremely obese Head/Face: Normocephalic, atraumatic Eyes: PERRL, EOMI, vision at baseline ENT: oral cavity clear, TMs clear, no signs of infection mild erythema of the posterior pharyngeal wall no exudate no pus Neck: Trachea midline, supple, no nuchal rigidity Cardiovascular: RRR, normal S1/S2, No MRGs, no JVD Respiratory: CTAB, no respiratory distress, No rales or wheezes Abdomen: Soft, non-tender, non-distended, normal bowel sounds, no guarding or rebound. Skin: Warm, dry, normal turgor, no rash MS/Extremity: Pulses equal, no cyanosis, neurovascular intact, FROM Neuro: COAx4, GCS 15, strength 5/5, CN 2-12 intact, normal cerebellar exam, no rmal gait, Psych: Normal behavior, mood, and affect normal Extremities-trace edema without any palpable cords, Homans sign is negative Results (Laboratory/Radiology) Laboratory/Radiology Laboratory Tests Test 12/04/24 01:37 Influenza Type A Antigen Negative For Type A Influenza Type B Antigen Negative For Type B SARS-CoV-2 Antigen (Rapid) PRESUMPTIVE NEGATIVE Group A Streptococcus Rapid negative (NEGATIVE) Labs Reviewed?: Yes ED Course ED Course Orders Procedure Category Date Status Time Influenza Type A & B, LAB 12/04/24 Complete Rapid 01:33 Rapid (Group A Strep) LAB 12/04/24 Complete 01:33 Covid19 (Sars Antigen LAB 12/04/24 Complete Rapid) 01:33 ,Urine Test LAB 12/04/24 Logged 02:09 Vital Signs Date Time Temp Pulse Resp B/P (MAP) Pulse Ox O2 Delivery O2 Flow Rate FiO2 12/04/24 01:46 98.1 68 18 125/66 99 Room Air* 0 21 12/04/24 01:29 98.1 69 20 146/91 98 Room Air We will perform diagnostic labs, and administer medications according to the patient's complaint. Once the results are available, will review and personally interpreted the labs to rule out any acute life-threatening emergency the trach require immediate intervention and treatment. I will then re-evaluate the patient after treatment and diagnostic exams have return to determine whether the patient requires any further testing, can safely be discharged home or need further admission to hospital for additional treatment and evaluation. 2:31 a.m. swabs for COVID influenza strep are all negative. I updated the patient on all the negative results and informed her maybe just a viral URI however because of the redness and associated cough would be reasonable to take amoxicillin safely as a nursing mother for 5-7 days. She verbalized full understanding Medical Decision Making MDM Differential diagnosis: Influenza, streptococcal pharyngitis, COVID, viral URI, bacterial pharyngitis Rationale: Tests considered and ordered secondary to shared decision making include: Previous outside records reviewed: Old ER visits. Risk of complication and/or morbidity or mortality of patient management: None Medications-Per medication reconciliation Need for hospitalization: Patient does not meet criteria for hospitalization. Need for emergency major/minor surgery: No There are no social concerns with this patient. Prescription drug management Prescriptions will include symptomatic care Patient's prior external medical records from other ER visits were reviewed by me as indicated. Prior testing and results from previous visits were reviewed. Prior tests were taken into account with medical decision making and resource u tilization, independent historian/historians were used to obtain complete medical history. I independently interpreted the test that were performed, results were reviewed by me and considered findings on radiology if ordered. Medical management and examination interpretation discussions were had by me with other qualified healthcare professionals as indicated for the patient's ca re. Problem List Problem List: (1) Sore throat (2) Lactating mother DX & DISP Disposition: Discharge Departure Impression: Primary Impression: Lactating mother Additional Impression: Sore throat Condition: Stable Scripts Amoxicillin (Amoxicillin) 500 Mg Tablet 1 TAB PO TID for 7 Days, #21 TAB 0 Refills Prov: IMTIAZ GROVE MD 12/04/24 Additional Instructions: Patient and the caregiver have been informed of all the diagnostic tests and the imaging conducted during the today's visit to the emergency room and has verbalized understanding of the results I have personally reviewed and interpreted all diagnostic exams performed here in the ER today as well as the vital signs documented by the nursing staff. The patient is now being discharged to home and should follow up with the primary care physician or the specialist as directed by the ER staff. Follow-up with primary care provider in 1 to 2 days. Take medications as directed here in the emergency room. Okay to continue home medications unless otherwise discussed during your visit in the emergency room today. Return to your nearest emergency room if symptoms worsen or if there is no improvement. Call 911 if you need immediate assistance. Take Tylenol or Motrin [id number] as needed and if no contraindications are present. Increase oral hydration. A wound culture or urine culture was ordered here in the emergency room department please follow-up with primary care provider and advise them to get repeat ports from our facility. If you had any Adolfo wrap/splints that were applied here, please do not remove them until you see your primary care or specialty. Referrals: SELF,REFERRAL (PCP) IMTIAZ GROVE MD Dec 04, 2024 01:54
[2024-12-04 01:57] LABS: RAPID GROUP A STREP negative (NEGATIVE)
[2024-12-04 02:07] LABS: COVID19 (SARS ANTIGEN RAPID) PRESUMPTIVE NEGATIVE (NEGATIVE); INFLUENZA TYPE A Negative For Type A (NEGATIVE); INFLUENZA TYPE B Negative For Type B (NEGATIVE)
[2024-12-04] MEDS ORDERED: AMOX500T2 PO (02:51)
[2024-12-04 03:07] VITALS: BP 128/61; PULSE 71; RESP 17; TEMP 98.1; O2SAT 99
== END 2024-12-04 03:08 | disposition home or self-care (01) ==
LOC: EDH 01:28
DX: J02.9 Acute pharyngitis, unspecified (principal); I10 Essential (primary) hypertension; Z98.890 Other specified postprocedural states; Z20.822 Contact with and (suspected) exposure to COVID-19
CPT/HCPCS: 87426; 87804; 87880; 99283